=== PATIENT | female | born 1935 | race Caucasian/White ===

== ENCOUNTER 2021-07-09 08:01 | Emergency (ER) | payer MEDICARE, SELFPAY ==
--- NOTE | ~2021-07-09 | XR_ITS ---
EXAMINATION: XR chest 1V portable DATE: 07/09/2021 09:24 INDICATION: Altered mental status. Ventricular tachycardia. TECHNIQUE: frontal view of the chest was obtained. COMPARISON: Chest radiograph dated 04/06/2017 FINDINGS: Retrocardiac airspace opacity left lower lung zone. Additional scattered more streaky opacities throu ghout both lungs. No pleural effusion or pneumothorax. Cardiomegaly. Coronary artery stenting. Right rotator cuff arthropathy. IMPRESSION: 1. Scattered opacities in both lungs most prominent in the left lower lung zones which could represen t atelectasis and/or pneumonia. 2. Cardiomegaly. Reviewed, dictated and finalized at location A. E SETTER IMPRESSION: 1. Scattered opacities in both lungs most prominent in the left lower lung zone s which could represent atelectasis and/or pneumonia. 2. Cardiomegaly.
--- NOTE | ~2021-07-09 | CT_ITS ---
EXAMINATION: CT brain wo con DATE: 07/09/2021 09:13 INDICATION: Altered mental status. Lethargy. TECHNIQUE: Computed tomography (CT) of the head was performed without intravenous contrast. The dose- length product was 529.67 mGy-cm. Automated exposure control and iterative reconstruction technique w ere employed. COMPARISON: None FINDINGS: There are scattered mild periventricular and subcortical white matter changes, most likely related to small vessel ischemic disease (microangiopathy). No ventriculomegaly or midline shift. Diego dy is limited by motion. No acute intracranial hemorrhage, infarction, mass or mass effect. There is atherosclerosis of the intracranial arteries. Paranasal sinuses and mastoids are unremarkable. No dep ressed skull fractures. IMPRESSION: 1. No acute intracranial abnormality. 2: Chronic age-related findings. Reviewed, dictated and finalized at location B. LAR JS DEVELOPER
[2021-07-09 08:05] VITALS: BP 145/110; PULSE 62; RESP 20; TEMP 35.3; O2SAT 100
[2021-07-09] MEDS: GLUCAGON FOR INJ 1 MG VIAL IM (08:15)
--- NOTE | 2021-07-09 08:19 | ECG_ITS ---
Measurements Intervals [place] Rate: 67 P: NV: 0 QRS: 257 QRSD: 150 T: 109 QT: 447 QTc: 472 Interpretive Statements ATRIAL FIBRILLATION RIGHT BUNDLE BRANCH BLOCK BASELINE WANDER- I, II, III, AVR, AVF, V1-V3 ABNORMAL ECG Electronically Signed On 07-09-2021 13:16:12 TECHNICAL AID by Zack Contreras D.O.
--- NOTE | 2021-07-09 08:19 | ED.AMS ---
HPI - Altered Mental Status General Chief Complaint: Altered Mental Status Stated Complaint: ambulance Time Seen by Provider: 07/09/21 08:04 Source: family, EMS and RN notes reviewed Mode of arrival: EMS Limitations: altered mental status History of Present Illness HPI narrative: 85-year-old female was doing well up until this morning when her daughter went to pick her up for dialysis this morning. She apparently had missed dialysis last Friday now 3 days ago. This morning when her daughter arrived patient was unresponsive cold and clammy breathing with poles. EMS was called found the patient with V-tach 125-130 and cardiovert her at 100 joules. Unable to establish an IV but gave her glucagon IM when they found her blood sugar to be 33. MD complaint: altered mental status Related Data Home Medications Medication Instructions Recorded Confirmed Magnesium (oxide/AA chelate) 400 mg PO DAILY 07/09/21 07/09/21 allopurinol 100 mg PO DAILY 07/09/21 07/09/21 amiodarone 100 mg PO DAILY 07/09/21 07/09/21 aspirin 81 mg PO DAILY 07/09/21 07/09/21 atorvastatin 10 mg PO DAILY 07/09/21 07/09/21 carvedilol 3.125 mg PO BID 07/09/21 07/09/21 isosorbide mononitrate 60 mg PO DAILY 07/09/21 07/09/21 pantoprazole 40 mg PO DAILY 07/09/21 07/09/21 sacubitril-valsartan [Entresto] 49 - 51 tablet PO BID 07/09/21 07/09/21 vit B comp no.2-amgco-B-biotin 1 tablet PO DAILY 07/09/21 07/09/21 [[facility]] Allergies Allergy/AdvReac Type Severity Reaction Status Date / Time adhesive tape Allergy Unknown Verified 10/05/16 18:39 erythromycin base Allergy Unknown Verified 10/05/16 18:39 Review of Systems Review of Systems: ROS unobtainable: Yes unobtainable due to mental status PMFSH Past Medical History Medical History (Updated 07/09/21 @ 10:08 by Kevin Terry MD) Atrial fibrillation Chronic renal failure Congestive heart failure Dialysis patient Hypertension Type 2 diabetes mellitus Surgical History Surgical History (Updated 07/09/21 @ 10:08 by Kevin Terry MD) H/O wrist surgery right History of appendectomy History of arteriovenous shunt History of tonsillectomy Hx of cholecystectomy S/P HCAPO-BSO Exam Const: General: diaphoretic and ill appearing acutely Nutritional Appearance: well nourished Limitations: altered mental status and physical limitations HENMT: Head: normal to inspection Ears: external ears normal Face and sinus: normal facial exam Mouth: Yes dry mucous membranes Eyes: Conjunctivae: conjunctivae normal Pupils: Equal, round and reactive pupils present EOM: EOMs intact bilaterally Neck: Neck: normal visual inspection Chest: Chest palpation & inspection: normal inspection of the chest Resp: Auscultation: rhonchi throughout and diminished lung sounds diffuse Cardio: Rate: regular rate Rhythm: abnormal rhythm regularly irregular GI: GI Palp: Yes Soft to palpation and No Tenderness to palpation present (GI) Auscultation: normal bowel sounds Skin: General skin exam: pallor and other (cool) Neuro: General: patient obtunded, Unable to assess gait and other ( unable to complete neurological exam secondary to altered mental status) Cranial nerves: Yes Equal, round and reactive pupils present Cognition (Neuro): abnormal cognition Extrem: General: no clubbing, cyanosis or edema Psych: Appearance: grossly normal Mental Status: other ( Unable to assess due to altered mental status) Course Course Emergency Course: On arrival patient is cold and clammy. Monitor shows atrial fibrillation with a rate in the 70s. She will respond to her 1st name opens her eyes but will not answer any questions. Multiple attempts at a peripheral line were attempted and finely an external jugular was placed on the right without difficulty by the nurse and under my supervision. A 2nd dose of glucagon had already been given IM and patient had minimal response and began lifting her head. Once the EJ was in place she is
[2021-07-09] MEDS: DEXTROSE 50% 25 GM/50 ML SYRINGE IV PUSH (08:23)
[2021-07-09] MEDS: DEXTROSE 5% 1,000 ML 1,000 ML 100 ML IV CONT (08:25)
[2021-07-09 08:45] VITALS: BP 112/42; PULSE 59; RESP 18; O2SAT 99
[2021-07-09 08:53] LABS: Basophils Absolute Auto 0.03 K/mm3 (0.00-0.10); Basophils Percent Auto 0.3 % (0.0-1.0); Eosinophils Absolute Auto 0.01 K/mm3 (0.02-0.50); Eosinophils Percent Auto 0.1 % (1.0-6.0); Hematocrit 46.3 % (35.0-42.0); Hemoglobin 14.4 g/dL (11.7-13.8); Immature Granulocyte Absolute 0.06 K/mm3 (0.00-0.00); Immature Granulocyte Percent A 0.6 % (0.0-0.0); Lymphocytes Absolute Auto 3.27 K/mm3 (1.10-4.50); Mean Corpuscular HGB Conc 31.1 g/dL (32.0-36.0); Mean Corpuscular Hemoglobin 32.9 pg (27.0-31.0); Mean Corpuscular Volume 105.7 fL (78.0-102.0); Mean Platelet Volume 10.2 fl (9.2-11.8); Monocytes Absolute Auto 0.67 K/mm3 (0.10-0.90); Monocytes Percent Auto 6.1 % (2.0-11.0); Neutrophils Absolute Auto 6.9 K/mm3 (1.7-7.2); Neutrophils Percent Auto 62.9 % (50.0-70.0); Platelet Count Result 122 K/mm3 (150-420); Red Blood Count 4.38 M/mm3 (4.20-5.40); Red Cell Distribution Width 14.3 % (11.6-14.4); White Blood Count 10.9 K/mm3 (4.8-10.8)
[2021-07-09 09:02] LABS: Add Urine Microscopic? YES; Appearance Urine Clear (Clear); Bilirubin Urine Negative (Negative); Blood Urine 1+ (Negative); Color Urine Yellow (Yellow); Glucose Urine UA Negative (Negative); Ketones Urine Trace (Negative); Leukocyte Esterase Ur Negative LEU/UL (Negative); Nitrate Urine Negative (Negative); Protein Urine 2+ (Negative); Specific Grav Ur >= 1.030 (1.010-1.020); Urobilinogen Urine 0.2 mg/dL (0.2-1.0)
[2021-07-09 09:07] LABS: Lactic Acid Reflex 9.7 mmol/L (0.4-2.0)
[2021-07-09 09:22] VITALS: BP 119/63; PULSE 57; RESP 18; TEMP 34.5; O2SAT 98
[2021-07-09 09:25] LABS: Bacteria Urine Trace /hpf; WBC Urine None seen /hpf (0-3)
--- NOTE | 2021-07-09 09:33 | PC.NURSE ---
Mal olsoner placed on pt due to rectal temp. of 94.1
[2021-07-09 09:36] LABS: Alanine Aminotransferase 33 U/L (14-59); Albumin Level 4.3 g/dL (3.4-5.0); Alkaline Phosphatase 209 U/L (46-116); Anion Gap 25 mmol/L (8-16); Aspartate Amino Transferase 52 U/L (15-37); Bilirubin,Total 1.8 mg/dL (0.00-1.00); Blood Urea Nitrogen 44 mg/dL (7-18); Carbon Dioxide 16 mmol/L (21-32); Chloride 102 mmol/L (98-108); Estimated CRCL calculation 12 ml/min; Estimated Glomerular Filt Rate 10; Magnesium 2.2 mg/dL (1.8-2.4); Osmolality Calculated 303 mOsm/kg (285-295); Potassium 6.1 mmol/L (3.5-5.1); Sodium 143 mmol/L (136-145)
[2021-07-09 09:41] LABS: Glucose 23 mg/dL (70-99)
--- NOTE | 2021-07-09 09:50 | PC.NURSE ---
Initial call made to [facility] for transfer. Spoke to Ananth GarciaWorkplace Rehabilitation Officer.
[2021-07-09 10:13] LABS: NT Pro B Type Natriuretic Pept > 35000 pg/mL (0-450)
--- NOTE | 2021-07-09 10:35 | PC.NURSE ---
Spoke to [facility] transfer line for transfer to [facility] per family request.
[2021-07-09 10:41] VITALS: BP 141/67; PULSE 60; RESP 18; TEMP 35.3; O2SAT 100
--- NOTE | 2021-07-09 10:43 | PC.NURSE ---
Horacio sent to lab.
[2021-07-09] MEDS: LACTATED RINGERS 1,000 ML 100 ML IV CONT (10:58)
[2021-07-09 11:07] LABS: SARS-CoV-2 Ag Negative (Negative)
[2021-07-09 11:37] LABS: Reflex Lactic Acid Yes or No No Lactic Reflex
[2021-07-09 11:50] LABS: Lactic Acid Reflex 7.7 mmol/L (0.4-2.0)
[2021-07-09 12:00] VITALS: BP 158/88; PULSE 57; RESP 16; O2SAT 97
--- NOTE | 2021-07-09 12:29 | PC.NURSE ---
Janette with [facility] transfer line called and stated pt had been accepted by Dr. Vargas.
[2021-07-09 13:22] VITALS: BP 163/75; PULSE 58; RESP 16; TEMP 36.3; O2SAT 98
--- NOTE | 2021-07-09 13:24 | PC.NURSE ---
Ok per Dr. Terry to turn oxygen off and see how pt will tolerate since pt is not oxygen dependent at home.
--- NOTE | 2021-07-09 13:25 | PC.NURSE ---
Pt resting comfortably at this time. Denies any needs or complaints.
--- NOTE | 2021-07-09 13:46 | PC.NURSE ---
Phone report given to CIARA Aly at [facility].
--- NOTE | 2021-07-09 13:51 | PC.NURSE ---
[facility] called for transport.
--- NOTE | 2021-07-09 13:55 | PC.NURSE ---
Elizabeth and Madiha, daughters of pt notified of pt room assignment and updated on plan of care and pt status.
[2021-07-09 13:58] LABS: Glucose Point of Care 39 mg/dl (65-105)
[2021-07-09 13:58] LABS: Glucose Point of Care 266 mg/dl (65-105)
== END 2021-07-09 14:30 | disposition short-term general hospital (02) ==
PROVIDERS: Emergency Provider Emergency Medicine; PCP Family Medicine
DX: E11.649 Type 2 diabetes mellitus with hypoglycemia without coma (principal); N18.9 Chronic kidney disease, unspecified; Z20.822 Contact with and (suspected) exposure to COVID-19; R06.9 Unspecified abnormalities of breathing; I48.91 Unspecified atrial fibrillation
CPT/HCPCS: 36415; 70450; 71045; 80053; 81001; 82948; 83605; 83735; 83880; 84484; 85025; 86140; 87426; 93005; 96361; 96365; 96366; 96372; 99285; C9803; J1610; J7070; J7120